=== PATIENT | female | born 1970 | race Caucasian/White ===

== ENCOUNTER 2021-10-23 18:11 | Emergency (ER) | payer BC ==
[2021-10-23] MEDS ORDERED: PERCOCET TABLET 5/325MG PO STA (19:03)
[2021-10-23] MEDS ORDERED: NORCO 5/325 MG ONE ×2 (19:08→20:22)
[2021-10-23] MEDS ORDERED: PERCOCET TABLET 5/325MG ONE (19:10)
--- NOTE | 2021-10-23 20:03 | ERPHSYRPT ---
- History of Present Illness Time Seen by Provider: 10/23/21 19:03 Source: patient Exam Limitations: no limitations Patient Subjective Stated Complaint: pt here for pain to right knee while sweeping today, no injury Triage Nursing Assessment: pt alert, face mask in place, unable to bear wt of right leg, no swelling to knee Physician History: 51 years old female presented in the ER with chief complaint of right knee pain sudden onset prior to arrival while she was sweeping floor and heard a popping sound on the right lateral knee area and since then having moderate intensity sharp pain and inability weightbearing. Minimal swelling around lateral knee. Pain radiates to the right upper calf area. No swelling of the calf. Method of Injury: other Occurred: just prior to arrival Quality: sharpness Severity of Pain-Max: moderate Severity of Pain-Current: moderate Lower Extremities Pain: knee: right Modifying Factors: Improves With: immobilization. Worsens With: movement Associated Symptoms: unable to bear weight, snapping sensation, popping sensation Allergies/Adverse Reactions: Sulfa (Sulfonamide Antibiotics) Allergy (Verified 10/23/21 18:27) Tetracyclines Allergy (Verified 10/23/21 18:27) Home Medications: Aspirin 81 gm Chew [Baby Aspirin 81 mg Chew] 81 mg PO DAILY 10/23/21 [History] Balsalazide Disodium [Colazal] 750 mg PO DAILY 10/23/21 [History] Carvedilol 6.25 mg [Coreg 6.25 MG] 6.25 mg PO DAILY 10/23/21 [History] Citalopram Hydrobromide [Celexa] 1 ea DAILY 10/23/21 [History] Empagliflozin [Jardiance] 10 mg PO DAILY 10/23/21 [History] Ferrous Sulfate [Iron] 1 ea DAILY 10/23/21 [History] Levothyroxine Sodium [Synthroid] 1 ea DAILY 10/23/21 [History] Omeprazole Magnesium [Prilosec] 10 mg PO DAILY 10/23/21 [History] Simvastatin 10 mg [Zocor 10MG] 10 mg PO DAILY 10/23/21 [History] Hx Influenza Vaccination/Date Given: Yes Hx Pneumococcal Vaccination/Date Given: Yes Immunizations Up to Date: Yes Travel Risk - International Travel Have you traveled outside of the country in past 3 weeks: No - Coronavirus Screening Are you exhibiting any of the following symptoms?: No - Vaccine Status Have you recieved a Covid-19 vaccination: Yes Event Av Operator: Pfizer - Vaccination Dates Date of 2cond Vaccination (if applicable): n/a - Review of Systems Constitutional: No Symptoms Ears, Nose, & Throat: No Symptoms Respiratory: No Symptoms Cardiac: No Symptoms Abdominal/Gastrointestinal: No Symptoms Genitourinary Symptoms: No Symptoms Musculoskeletal: Injury, Joint Pain Skin: No Symptoms Neurological: No Symptoms Psychological: No Symptoms Endocrine: No Symptoms Hematologic/Lymphatic: No Symptoms Immunological/Allergic: No Symptoms - Past Medical History Cardiac History: Coronary Artery Disease, High Cholesterol, Hypertension Endocrine Medical History: Diabetes Type II, Hypothyroidism GI Medical History: Crohns Disease, GERD Psycho-Social History: Anxiety, Depression - Past Surgical History Past Surgical History: Yes Gastrointestinal: Exploratory Laparoscopy Other Surgical History: tubes in ears - Social History Smoking Status: Never smoker Drug Use: none Patient Lives Alone: No - Nursing Vital Signs Nursing Vital Signs: Initial Vital Signs Temperature 97.2 F 10/23/21 18:18 Pulse Rate 78 10/23/21 18:18 Respiratory Rate 18 10/23/21 18:18 O2 Sat by Pulse Oximetry 98 10/23/21 18:18 Pain Scale Pain Intensity 4 - Physical Exam General Appearance: no apparent distress, alert Eyes, Ears, Nose, Throat Exam: normal ENT inspection Neck Exam: normal inspection, supple, full range of motion Cardiovascular/Respiratory Exam: normal breath sounds, regular rate/rhythm Back Exam: normal inspection, normal range of motion Hips Exam: right: normal range of motion, bilateral: non-tender, normal inspection, no evidence of injury Legs Exam: bilateral leg: non-tender, normal inspection, normal range of motion, no evidence of injury Knees Exam: right knee: pain, soft tissue tenderness, swelling, other (No definite of tenderness but pain is reproducible with movements of right knee in the right lateral knee/right upper lateral calf.), left knee: non-tender, bilateral knee: normal inspection, normal range of motion, no evidence of injury Ankle Exam: bilateral ankle: non-tender, normal inspection, normal range of motion, no evidence of injury Neuro/Tendon Exam: normal sensation, normal motor functions Mental Status Exam: alert, oriented x 3, cooperative Skin Exam: normal color SpO2 Interpretation: normal SpO2: 99 O2 Delivery: Room Air Ordered Tests: Active Orders 24 hr Category Date Time Status LOWER EXTREMITY WO CONTRAST [CT] Stat Exams 10/23/21 18:57 Taken Medication Summary Discontinued Medications Generic Name Dose Route Start Last Admin Trade Name Adela PRN Reason Stop Dose Admin Hydrocodone Bitart/Acetaminophen Confirm 10/23/21 19:08 Hydrocodone/Apap 5/325 Mg Tablet Administered 10/23/21 19:09 Dose 2 tab .ROUTE .STK-MED ONE Oxycodone/Acetaminophen 2 tab 10/23/21 19:03 10/23/21 19:11 Oxycodone Hcl/Apap 5 Mg/325 Mg Tablet PO 10/23/21 19:04 2 tab STAT STA Administration Oxycodone/Acetaminophen Confirm 10/23/21 19:10 Oxycodone Hcl/Apap 5 Mg/325 Mg Tablet Administered 10/23/21 19:11 Dose 2 tab .ROUTE .STK-MED ONE - Progress Progress: improved Progress Note: 10/23/21 20:05 She is given symptomatic treatment for pain, feeling better on reevaluation. Unable to have any weightbearing. Distal neurovascular well intact. I have obtained CT imaging of knee which did not show any acute fracture dislocation bu t small effusion. I believe patient has ligament/tendon injury. We will have her knee immobilizer, nonweightbearing and outpatient Ortho follow-up. No signs of cellulitis, DVT. 10/23/21 20:09 Counseled pt/family regarding: diagnosis, need for follow-up, rad results - Departure Departure Disposition: Home Clinical Impression: Knee sprain Condition: Stable Critical Care Time: No Referrals: HANNAH RODRIGUEZ MD [Primary Care Provider] - Follow up/PCP as directed ORTHO - TIFFANIE GALO NP [NON-STAFF PHY W/O PRIVILEGES] - Follow up/PCP as directed (Tomorrow for reevaluation.) Instructions: Knee Sprain (DC), Knee Pain (DC) Additional Instructions: Nonweightbearing, apply intermittent ice. Take pain medications as needed. Follow-up with orthopedic surgery for reevaluation tomorrow. Return to ER for worsening pain/swelling or if develop redness etc. Prescriptions: Hydrocodone/Acetaminophen [Hydrocodone-Acetamin 5-325 mg] 1 tab PO Q6HPRN PRN 3 Days #12 tablet MDD 4 PRN Reason: Pain
[2021-10-23] MEDS ORDERED: NORCO 5/325 MG PO ONE (20:09)
[2021-10-23] MEDS ORDERED: ZOFRAN ODT 4 MG PO ONE (20:43)
[2021-10-23] MEDS ORDERED: ZOFRAN ODT 4 MG ONE (20:43)
[2021-10-23 21:09] VITALS: BP 139/89; PULSE 84; O2SAT 97
--- NOTE | 2021-10-24 08:44 | XRAY ---
Indication: Posterior knee pain. Patient heard "pop." Multiple contiguous axial images obtained through the right knee. Sagittal and coronal reformatted images obtained. Comparison: None 3 mm bone island lateral tibial plateau. No acute fracture, dislocation, or osseous destructive process. Patellofemoral articulation symmetric. There is small patella spurring and tiny nonspecific effusion. 5 mm subcutaneous calcified granuloma posteriorly. Remaining visualized noncontrasted soft tissues including major arteries/veins are unremarkable. Impression: 1. Tiny tibial plateau bone island, patella spurring, and tiny nonspecific effusion. 2. Remaining CT right knee without contrast exam is negative.
== END 2021-10-23 21:10 | disposition home or self-care (01) ==
LOC: ED 18:11
DX: S83.91XA Sprain of unspecified site of right knee, initial encounter (principal); X50.9XXA Other and unspecified overexertion or strenuous movements or postures, initial encounter; Y93.E9 Activity, other interior property and clothing maintenance; M25.561 Pain in right knee; E78.5 Hyperlipidemia, unspecified; I10 Essential (primary) hypertension; E11.9 Type 2 diabetes mellitus without complications; K21.9 Gastro-esophageal reflux disease without esophagitis; Z79.84 Long term (current) use of oral hypoglycemic drugs; Z79.899 Other long term (current) drug therapy; Z79.891 Long term (current) use of opiate analgesic
CPT/HCPCS: 73700; 99284; L1830; Q0162; A9270-GY